=== PATIENT | female | born 1985 | race African-American/Black ===

== ENCOUNTER 2022-09-28 09:43 | Emergency (ER) | payer MEDICAID ==
[~2022-09-28] VITALS: Ht 167.6 cm; Wt 50.0 kg
[2022-09-28 09:50] VITALS: BP 154/109
[2022-09-28] MEDS ORDERED: ONDANSETRON 4MG ODT PO STA (10:15)
[2022-09-28 11:52] LABS: BASOPHILS % 0.5 % (0.0-2.0); EOSINOPHILS % 0.3 % (0.0-5.0); HEMATOCRIT. 43.5 % (36.0-48.0); HEMOGLOBIN. 14.9 g/dL (12.0-16.0); MEAN CORPUSCULAR HEMOGLOBIN 31.1 pg (28.0-32.0); MEAN CORPUSCULAR VOLUME 90.9 fL (81.0-99.0); MEAN PLATELET VOLUME 8.2 fl (7.4-10.4); NEUTROPHILS % 62.2 % (40.0-76.0); PLATELET 231 x1000/uL (130-400); RED BLOOD CELL COUNT 4.79 mill/uL (4.2-5.4); RED CELL DISTRIBUTION WIDTH 14.2 % (11.6-14.6)
[2022-09-28] MEDS ORDERED: HALOPERIDOL LACTATE 5MG/ML VIAL IM ONE (12:00)
[2022-09-28 12:04] LABS: CHLORIDE 105 mEq/L (98-107)
[2022-09-28] MEDS ORDERED: METO5TAB86 MT (14:16)
== END 2022-09-28 14:48 | disposition home or self-care (01) ==
LOC: ER 09:43
DX: R10.13 Epigastric pain (principal); E86.0 Dehydration; R11.2 Nausea with vomiting, unspecified; F41.9 Anxiety disorder, unspecified
CPT/HCPCS: 36415; 71045; 80053; 81025; 82962; 83690; 85025; 96372; 99284; J1630; Q0162